=== PATIENT | male | born 2000 | race Caucasian/White ===

== ENCOUNTER 2018-02-17 19:49 | Emergency (ER) | payer BC ==
[~2018-02-17] VITALS: Ht 193 cm; Wt 133.8 kg
[2018-02-17 20:07] VITALS: BP_SYST 151
[2018-02-17 20:53] LABS: BASOPHILS % (AUTO) 0.5 % (0.0-2.0); EOSINOPHILS # (AUTO) 0.1 K/uL (0.0-0.4); EOSINOPHILS % (AUTO) 0.9 % (0.0-4.0); HEMATOCRIT 48.3 % (36-54); LYMPHOCYTES # (AUTO) 1.4 K/uL (1.0-5.5); LYMPHOCYTES % (AUTO) 17.2 % (20.5-51.5); MEAN CORPUSCULAR HEMOGLOBIN 33 pg (27-31); MEAN CORPUSCULAR HGB CONC 35 % (32-36); MEAN CORPUSCULAR VOLUME 94 fL (79.0-98.0); MONOCYTES # (AUTO) 0.6 K/uL (0.0-1.0); MONOCYTES % (AUTO) 6.7 % (1.7-9.3); NEUTROPHILS # (AUTO) 6.3 K/uL (1.8-7.7); NEUTROPHILS % (AUTO) 74.7 % (40.0-70.0); PLATELET COUNT (AUTO) 200 K/uL (130-430); RED BLOOD CELL COUNT(AUTO) 5.13 MIL/uL (4.2-6.2); RED CELL DISTRIBUTION WIDTH 11.4 % (9.0-15.0); WHITE BLOOD COUNT (AUTO) 8.4 K/uL (4.5-11.0)
[2018-02-17 21:04] LABS: CREATININE 0.92 mg/dL (0.55-1.30); POTASSIUM 4.3 mmol/L (3.5-5.1)
[2018-02-17 21:08] LABS: ALBUMIN 3.9 g/dL (3.4-4.8); TOTAL BILIRUBIN 0.4 mg/dL (0.0-1.0)
[2018-02-17 21:44] LABS: BILIRUBIN,URINE NEGATIVE (NEGATIVE); BLOOD, URINE NEGATIVE (NEGATIVE); CLARITY/URINE CLEAR (CLEAR); COLOR,URINE YELLOW (YELLOW); GLUCOSE,URINE NEGATIVE (NEGATIVE); KETONES,URINE NEGATIVE (NEGATIVE); LEUKOCYTE ESTERASE ,URINE NEGATIVE (NEGATIVE); NITRITE, URINE NEGATIVE (NEGATIVE); PROTEIN URINE NEGATIVE (NEGATIVE); UROBILINOGEN,URINE 0.2 (0.2-1.0)
[2018-02-17 23:30] VITALS: BP_SYST 140
== END 2018-02-17 23:30 | disposition home or self-care (01) ==
LOC: SED 19:49
DX: R10.9 Unspecified abdominal pain (principal); R03.0 Elevated blood-pressure reading, without diagnosis of hypertension
CPT/HCPCS: 36415; 80053; 81003; 83690-TC; 85025; 99284

== ENCOUNTER 2019-03-03 22:55 | Emergency (ER) | payer BC ==
[~2019-03-03] VITALS: Ht 193 cm; Wt 145.1 kg
[2019-03-03 23:00] VITALS: BP_SYST 158
[2019-03-04 00:44] LABS: STREPTOCOCCUS A SCREEN (RAPID) NEGATIVE (NEGATIVE)
[2019-03-04 01:09] LABS: MONOTEST NEGATIVE (NEGATIVE)
[2019-03-04 01:45] VITALS: BP_SYST 145
== END 2019-03-04 01:44 | disposition home or self-care (01) ==
LOC: SED 22:55
DX: J02.9 Acute pharyngitis, unspecified (principal); Z88.1 Allergy status to other antibiotic agents
CPT/HCPCS: 36415; 86308-TC; 86403; 87081; 99283

== ENCOUNTER 2019-03-08 21:18 | Emergency (ER) | payer BC ==
[~2019-03-08] VITALS: Ht 193 cm; Wt 140.6 kg
[2019-03-08 21:38] VITALS: BP_SYST 154
[2019-03-09 00:54] VITALS: BP_SYST 148
== END 2019-03-09 00:54 | disposition home or self-care (01) ==
LOC: SED 21:18
DX: R51 Headache (principal); Z88.0 Allergy status to penicillin
CPT/HCPCS: 70450-TC; 99284

== ENCOUNTER 2024-02-18 18:42 | Emergency (ER) | payer BC ==
[~2024-02-18] VITALS: Ht 185.4 cm; Wt 145.1 kg
[2024-02-18 18:48] VITALS: BP_SYST 170; PULSE 91; RESP 18; TEMP 98; O2SAT 98
[2024-02-18] MEDS: MORPHINE 4 MG INJ. 4 MG/ML VIAL IVP ONE (19:45)
[2024-02-18 19:47] LABS: BASOPHILS # (AUTO) 0.1 K/uL (0.0-0.2); BASOPHILS % (AUTO) 0.8 % (0.0-2.0); HEMOGLOBIN 16.1 g/dL (14.0-18.0); MEAN CORPUSCULAR HGB CONC 35 % (32-36); PLATELET COUNT (AUTO) 211 K/uL (130-430)
[2024-02-18 19:52] LABS: EOSINOPHILS # (AUTO) 0.1 K/uL (0.0-0.4); EOSINOPHILS % (AUTO) 1.2 % (0.0-4.0); LYMPHOCYTES # (AUTO) 2.3 K/uL (1.0-5.5); LYMPHOCYTES % (AUTO) 23.2 % (20.5-51.5); MEAN CORPUSCULAR HEMOGLOBIN 33 pg (27-31); MEAN CORPUSCULAR VOLUME 94 fL (79.0-98.0); MONOCYTES # (AUTO) 0.8 K/uL (0.0-1.0); MONOCYTES % (AUTO) 8.4 % (1.7-9.3); NEUTROPHILS # (AUTO) 6.4 K/uL (1.8-7.7); NEUTROPHILS % (AUTO) 66.4 % (40.0-70.0); RED CELL DISTRIBUTION WIDTH 12.6 % (9.0-15.0); WHITE BLOOD COUNT (AUTO) 9.7 K/uL (4.8-10.8)
[2024-02-18 19:59] LABS: ALANINE AMINOTRANSFERASE 96 U/L (12-78); ANION GAP 11 (5-15); ASPARTATE AMINOTRANSFERASE 51 U/L (10-37); CALCIUM 9.3 mg/dL (8.4-11.0); CARBON DIOXIDE 26 mmol/L (23-29); CHLORIDE 100 mmol/L (98-107); CREATININE 1.09 mg/dL (0.55-1.30); GFR AFRICAN AMERICAN 106 mL/min (>90); GLUCOSE 104 mg/dL (74-106); SODIUM SERUM 137 mmol/L (136-145); TOTAL BILIRUBIN 0.5 mg/dL (0.0-1.0); TOTAL PROTEIN, SERUM 8.1 g/dL (6.4-8.3); UREA NITROGEN, BLOOD 17 mg/dL (8-21)
[2024-02-18 20:00] LABS: GFR NON AFRICAN-AMERICAN 88 mL/min (>90)
[2024-02-18 20:02] LABS: BILIRUBIN,DIRECT 0.1 mg/dL (0.0-0.3)
[2024-02-18] MEDS ORDERED: iohexoL 350 mgI/mL, 100 ML INFUS..BTL IV ONE (20:08)
[2024-02-18] MEDS: ENALAPRILAT DIHYDRATE 1.25 MG/ML VIAL IVP ONE (20:13)
[2024-02-18 21:37] VITALS: BP_SYST 168; PULSE 110; RESP 22; TEMP 98; O2SAT 98
== END 2024-02-18 21:33 | disposition home or self-care (01) ==
LOC: SED 18:42
DX: R03.0 Elevated blood-pressure reading, without diagnosis of hypertension (principal); F10.20 Alcohol dependence, uncomplicated; F41.9 Anxiety disorder, unspecified; R11.2 Nausea with vomiting, unspecified; M54.9 Dorsalgia, unspecified; R00.0 Tachycardia, unspecified; Z88.1 Allergy status to other antibiotic agents; Y90.9 Presence of alcohol in blood, level not specified
CPT/HCPCS: 99285; 71275; 71045; 80076; 80048; 83880; 85025; 85379; 84484; 36415; 93005; 70498; Q9967